=== PATIENT | male | born 1980 | race Two or more races ===

== ENCOUNTER 2019-09-05 09:06 | Emergency (ER) | payer BC, MEDICARE ==
[~2019-09-05] VITALS: Ht 175.3 cm; Wt 95.3 kg
[2019-09-05 09:36] VITALS: BP 149/95
[2019-09-05] MEDS ORDERED: KETOROLAC TROMETH 60MG/2ML VIAL IM ONE (11:30)
== END 2019-09-05 11:39 | disposition home or self-care (01) ==
LOC: ER 09:06
DX: S83.92XA Sprain of unspecified site of left knee, initial encounter (principal); X58.XXXA Exposure to other specified factors, initial encounter; Y93.89 Activity, other specified; Y99.8 Other external cause status; Y92.89 Other specified places as the place of occurrence of the external cause
CPT/HCPCS: 73562; 96372; 99283; J1885